=== PATIENT | female | born 1985 | race Asian ===

== ENCOUNTER 2018-04-07 23:56 | Emergency (ER) | payer OTHER ==
[~2018-04-07] VITALS: Ht 149.9 cm; Wt 45.0 kg
[2018-04-08 00:09] VITALS: BP 106/63
== END 2018-04-08 01:50 | disposition home or self-care (01) ==
LOC: ED 04-08 01:17
DX: J30.2 Other seasonal allergic rhinitis (principal)
CPT/HCPCS: 71046; 99284